=== PATIENT | female | born 1950 | race Caucasian/White ===

== ENCOUNTER → 2017-08-23 | Outpatient (CLI) | payer MEDICARE, OTHER ==
[~2017-08-23] MED LIST: /ESCI20TA OR; LUNE2TAB OR; PREG50CA OR; PROP10TAB OR; WELL75TA OR
[2017-08-23 14:39] LABS: ANION GAP 9 MEQ/L (8-16); BLOOD UREA NITROGEN 8 MG/DL (7-18); CALCIUM LEVEL 8.7 MG/DL (8.8-10.2); CARBON DIOXIDE LEVEL 26 MEQ/L (21-32); CHLORIDE LEVEL 109 MEQ/L (98-107); CREATININE FOR GFR 0.59 MG/DL (0.55-1.02); GLOMERULAR FILTRATION RATE > 60.0 (>45); GLUCOSE, FASTING 79 MG/DL (80-110); POTASSIUM SERUM 3.9 MEQ/L (3.5-5.1); SODIUM LEVEL 144 MEQ/L (136-145)
== END ==
LOC: M WUC 09:31
PROVIDERS: ATTEND Nurse Practitioner Family
DX: E55.9 Vitamin D deficiency, unspecified (principal); E58 Dietary calcium deficiency

== ENCOUNTER → 2017-08-29 | Outpatient (CLI) | payer MEDICARE, OTHER | LOC: M WUC 10:41 | PROVIDERS: ATTEND Internal Medicine Endocrinology, Diabetes & Metabolism | DX: M81.0 Age-related osteoporosis without current pathological fracture (principal); E58 Dietary calcium deficiency ==

== ENCOUNTER → 2017-11-17 | Outpatient (CLI) | payer MEDICARE, OTHER | LOC: M WUC 18:35 | DX: S22.32XA Fracture of one rib, left side, initial encounter for closed fracture (principal); X58.XXXA Exposure to other specified factors, initial encounter; Y92.9 Unspecified place or not applicable | CPT/HCPCS: 71101 ==

== ENCOUNTER → 2018-03-08 | Outpatient (CLI) | payer MEDICARE, OTHER ==
[2018-03-08 16:57] LABS: ANION GAP 8 MEQ/L (8-16); BLOOD UREA NITROGEN 13 MG/DL (7-18); CALCIUM LEVEL 8.8 MG/DL (8.8-10.2); CARBON DIOXIDE LEVEL 27 MEQ/L (21-32); CHLORIDE LEVEL 110 MEQ/L (98-107); CREATININE FOR GFR 0.64 MG/DL (0.55-1.30); GLOMERULAR FILTRATION RATE > 60.0 (>45); GLUCOSE, FASTING 100 MG/DL (70-100); SODIUM LEVEL 145 MEQ/L (136-145)
[2018-03-08 17:01] LABS: TOTAL 25(OH) VITAMIN D 31.1 NG/ML (30.0-100.0)
== END ==
LOC: M WUC 12:05
DX: E55.9 Vitamin D deficiency, unspecified (principal); E58 Dietary calcium deficiency
CPT/HCPCS: 82306

== ENCOUNTER 2018-03-09 07:13 | Emergency (ER) | payer MEDICARE, OTHER ==
[2018-03-09] MEDS: NS 500 ML IV ×3 (07:45)
[2018-03-09 07:58] LABS: BASO % 0.4 % (0.0-1.0); EOS # 0.2 10^3/uL (0.0-0.50); EOS % 1.6 % (0.0-3.0); HEMOGLOBIN 14.2 g/dl (12.0-15.5); IMMATURE GRANULOCYTE % 0.2 % (0-3.0); LYMPH # 2.2 10^3/uL (1.5-4.5); LYMPH % 22.8 % (24.0-44.0); MEAN CORPUSCULAR HEMOGLOBIN 29.6 pg (27.0-33.0); MEAN CORPUSCULAR VOLUME 89.6 fl (80.0-96.0); MONO # 0.7 10^3/uL (0.0-0.8); MONO % 7.3 % (0.0-5.0); NEUTROPHILS # 6.6 10^3/uL (1.8-7.7); NEUTROPHILS % 67.7 % (36.0-66.0); PLATELET COUNT, AUTOMATED 242 10^3/uL (150-450); RED CELL DISTRIBUTION WIDTH 14.1 % (11.5-14.5); WHITE BLOOD COUNT 9.8 10^3/uL (4.0-10.0)
[2018-03-09 08:09] LABS: INR 0.96; PROTHROMBIN TIME 12.9 SECONDS (12.4-14.5)
[2018-03-09 08:10] LABS: PARTIAL THROMBOPLASTIN TIME 30.4 SECONDS (26.8-37.9)
[2018-03-09 08:12] LABS: LACTIC ACID SEPSIS PROTOCOL 1.1 MMOL/L (0.4-2.0)
[2018-03-09 08:15] LABS: ALBUMIN 3.7 GM/DL (3.2-5.2); ALBUMIN/GLOBULIN RATIO 1.16 (1.00-1.93); ALKALINE PHOSPHATASE 107 U/L (45-117); ALT/SGPT 61 U/L (12-78); ANION GAP 6 MEQ/L (8-16); AST/SGOT 43 U/L (7-37); BILIRUBIN,DIRECT 0.2 MG/DL (0.0-0.2); BILIRUBIN,TOTAL 0.6 MG/DL (0.2-1.0); BLOOD UREA NITROGEN 11 MG/DL (7-18); CALCIUM LEVEL 8.6 MG/DL (8.8-10.2); CARBON DIOXIDE LEVEL 29 MEQ/L (21-32); CHLORIDE LEVEL 109 MEQ/L (98-107); CPK CREATINE PHOSPHOKINASE 60 U/L (26-192); CREATININE FOR GFR 0.62 MG/DL (0.55-1.30); FREE T4 0.91 NG/DL (0.76-1.46); GLOMERULAR FILTRATION RATE > 60.0 (>45); GLUCOSE, FASTING 88 MG/DL (70-100); LIPASE 139 U/L (73-393); POTASSIUM SERUM 3.9 MEQ/L (3.5-5.1); SODIUM LEVEL 144 MEQ/L (136-145); TOTAL PROTEIN 6.9 GM/DL (6.4-8.2); TROPONIN I < 0.02 NG/ML (< 0.10)
[2018-03-09 08:20] LABS: CK-MB VALUE MASS 1.1 NG/ML (<3.6); MB/CK RELATIVE INDEX 1.83 (< OR =4)
[2018-03-09] MEDS ORDERED: ISOVUE-370 76% 100ML VIAL (Q9967) As Ordered ×3 (09:10)
[2018-03-09 09:52] LABS: KETONE, URINE AUTO RFX NEGATIVE (NEGATIVE); LEUKOCYTE ESTERASE UR AUTO RFX NEGATIVE (NEGATIVE); NITRITE, URINE AUTO RFX NEGATIVE (NEGATIVE); RBC, URINE AUTO RFX 2 /HPF (0-3); SPECIFIC GRAVITY UR AUTO RFX 1.012 (1.002-1.035); SQUAM EPITHELIAL CELL UR AURFX 0 /HPF (0-6); WBC, URINE AUTO RFX 0 /HPF (0-3)
== END 2018-03-09 10:22 | disposition home or self-care (01) ==
LOC: M ED 07:13
DX: R00.2 Palpitations (principal); R51 Headache; R63.4 Abnormal weight loss; R10.9 Unspecified abdominal pain; K43.9 Ventral hernia without obstruction or gangrene; I10 Essential (primary) hypertension; Z98.84 Bariatric surgery status; Z79.899 Other long term (current) drug therapy; Z88.5 Allergy status to narcotic agent; Z88.8 Allergy status to other drugs, medicaments and biological substances; Z91.041 Radiographic dye allergy status
CPT/HCPCS: 71046

== ENCOUNTER → 2018-04-18 | Outpatient (CLI) | payer MEDICARE, OTHER ==
[2018-04-18 17:48] LABS: HEMATOCRIT 41.9 % (36.0-47.0); HEMOGLOBIN 13.9 g/dl (12.0-15.5); MEAN CORPUSCULAR HEMOGLOBIN 30.3 pg (27.0-33.0); MEAN CORPUSCULAR HGB CONC 33.2 g/dl (32.0-36.5); MEAN CORPUSCULAR VOLUME 91.3 fl (80.0-96.0); PLATELET COUNT, AUTOMATED 344 10^3/uL (150-450); RED BLOOD COUNT 4.59 10^6/uL (4.00-5.40); RED CELL DISTRIBUTION WIDTH 15.2 % (11.5-14.5); WHITE BLOOD COUNT 13.4 10^3/uL (4.0-10.0)
== END ==
LOC: M WUC 15:23
DX: D50.0 Iron deficiency anemia secondary to blood loss (chronic) (principal)
CPT/HCPCS: 85027

== ENCOUNTER 2018-05-31 06:28 | Day surgery (SDC) | payer MEDICARE, OTHER ==
[2018-05-31] MEDS ORDERED: PROPOFOL 200 MG/20 ML VIAL As Ordered (07:00)
[2018-05-31] MEDS ORDERED: LIDOCAINE 2% INJ 100 MG/5 ML SDV (FOR ANES.) As Ordered (07:01)
[2018-05-31] MEDS ORDERED: NS 1,000 ML IV (07:15)
== END 2018-05-31 08:46 | disposition home or self-care (01) ==
LOC: M OPP 06:28
DX: K92.1 Melena (principal); K52.9 Noninfective gastroenteritis and colitis, unspecified; K64.8 Other hemorrhoids; Q43.8 Other specified congenital malformations of intestine; I25.2 Old myocardial infarction; E78.5 Hyperlipidemia, unspecified; K58.9 Irritable bowel syndrome, unspecified; M51.9 Unspecified thoracic, thoracolumbar and lumbosacral intervertebral disc disorder; M79.7 Fibromyalgia; M81.0 Age-related osteoporosis without current pathological fracture; F41.9 Anxiety disorder, unspecified; F32.9 Major depressive disorder, single episode, unspecified; G43.909 Migraine, unspecified, not intractable, without status migrainosus; R06.83 Snoring; G47.30 Sleep apnea, unspecified; Z98.1 Arthrodesis status; Z98.84 Bariatric surgery status; Z88.5 Allergy status to narcotic agent; Z91.041 Radiographic dye allergy status; Z91.048 Other nonmedicinal substance allergy status; Z79.899 Other long term (current) drug therapy; Z80.1 Family history of malignant neoplasm of trachea, bronchus and lung; Z80.8 Family history of malignant neoplasm of other organs or systems
CPT/HCPCS: 45380

== ENCOUNTER 2018-07-19 19:41 | Emergency (ER) | payer MEDICARE, OTHER ==
[2018-07-19] MEDS: ASPIRIN 81 MG CHEW TABLET PO (19:45)
[2018-07-19 20:24] LABS: VENOUS BASE EXCESS 1.9 (-2.0-2.0); VENOUS O2 SATURATION 74.8 % (60.0-80.0); VENOUS PARTIAL PRESSURE CO2 43.9 mmHg (38.0-50.0); VENOUS PARTIAL PRESSURE O2 39.1 mmHg (30.0-50.0); VENOUS PH 7.407 UNITS (7.330-7.430); VENOUS STANDARD HCO3 25.6 MEQ/L; VENOUS TOTAL CO2 28.4 MEQ/L (24.0-28.0)
[2018-07-19 20:27] LABS: BASO # 0.1 10^3/uL (0.0-0.2); BASO % 0.5 % (0.0-1.0); EOS # 0.1 10^3/uL (0.0-0.50); EOS % 1.3 % (0.0-3.0); HEMATOCRIT 44.2 % (36.0-47.0); HEMOGLOBIN 14.3 g/dl (12.0-15.5); IMMATURE GRANULOCYTE % 0.3 % (0-3.0); LYMPH # 2.7 10^3/uL (1.5-4.5); LYMPH % 25.8 % (24.0-44.0); MEAN CORPUSCULAR HEMOGLOBIN 29.3 pg (27.0-33.0); MEAN CORPUSCULAR HGB CONC 32.4 g/dl (32.0-36.5); MEAN CORPUSCULAR VOLUME 90.6 fl (80.0-96.0); MONO # 0.7 10^3/uL (0.0-0.8); MONO % 6.5 % (0.0-5.0); NEUTROPHILS # 6.9 10^3/uL (1.8-7.7); NEUTROPHILS % 65.6 % (36.0-66.0); PLATELET COUNT, AUTOMATED 274 10^3/uL (150-450); RED BLOOD COUNT 4.88 10^6/uL (4.00-5.40); RED CELL DISTRIBUTION WIDTH 13.6 % (11.5-14.5); WHITE BLOOD COUNT 10.5 10^3/uL (4.0-10.0)
[2018-07-19 20:57] LABS: ALBUMIN 3.8 GM/DL (3.2-5.2); ALBUMIN/GLOBULIN RATIO 1.23 (1.00-1.93); ALKALINE PHOSPHATASE 92 U/L (45-117); ALT/SGPT 70 U/L (12-78); ANION GAP 5 MEQ/L (8-16); AST/SGOT 51 U/L (7-37); BILIRUBIN,DIRECT 0.2 MG/DL (0.0-0.2); BILIRUBIN,TOTAL 0.4 MG/DL (0.2-1.0); BLOOD UREA NITROGEN 14 MG/DL (7-18); CALCIUM LEVEL 8.5 MG/DL (8.8-10.2); CARBON DIOXIDE LEVEL 30 MEQ/L (21-32); CHLORIDE LEVEL 108 MEQ/L (98-107); CK-MB VALUE MASS < 1.0 NG/ML (<3.6); CPK CREATINE PHOSPHOKINASE 43 U/L (26-192); GLOMERULAR FILTRATION RATE > 60.0 (>45); GLUCOSE, FASTING 96 MG/DL (70-100); MB/CK RELATIVE INDEX 2.33 (< OR =4); NT-PRO BNP 79 PG/ML (<125); POTASSIUM SERUM 4.2 MEQ/L (3.5-5.1); SODIUM LEVEL 143 MEQ/L (136-145); TOTAL PROTEIN 6.9 GM/DL (6.4-8.2); TROPONIN I < 0.02 NG/ML (< 0.10)
== END 2018-07-19 21:22 | disposition home or self-care (01) ==
LOC: M ED 19:41
DX: R07.9 Chest pain, unspecified (principal); M54.9 Dorsalgia, unspecified; F32.9 Major depressive disorder, single episode, unspecified; Z98.84 Bariatric surgery status; Z82.49 Family history of ischemic heart disease and other diseases of the circulatory system; Z91.041 Radiographic dye allergy status; Z88.8 Allergy status to other drugs, medicaments and biological substances; Z88.5 Allergy status to narcotic agent; Z91.048 Other nonmedicinal substance allergy status; Z79.899 Other long term (current) drug therapy
CPT/HCPCS: 71046

== ENCOUNTER 2018-09-05 09:37 | Day surgery (SDC) | payer MEDICARE, OTHER ==
[~2018-09-05 09:37] MED LIST changes: -/ESCI20TA OR; +ACETAMINOPHEN 325 MG TAB PO; -LUNE2TAB OR; -PREG50CA OR; -PROP10TAB OR; -WELL75TA OR
[2018-09-05] MEDS: OFLOXACIN 0.3 % (OCUFLOX) OPTH SOL 5ML OD (10:59)
[2018-09-05] MEDS: LIDOCAINE 3.5 % 1ML OPHTH TOPICAL GEL OU (10:59)
[2018-09-05] MEDS: PHENYLEPHRINE 2.5% OPHTH SOL 2ML OD (10:59)
[2018-09-05] MEDS: CYCLOPENTOLATE 2% OPHTH SOLN 2ML BTL OD (11:00)
[2018-09-05] MEDS: TROPICAMIDE 1% OPHTH SOLN 2ML OD (11:00)
[2018-09-05] MEDS ORDERED: POVIDONE-IODINE 5% OPHTH PREP SOL 30ML As Ordered (11:20)
[2018-09-05] MEDS: PHENYLEPHRINE HCL 10 % OPHTH. SOL 5ML OD (11:28)
[2018-09-05] MEDS ORDERED: MIDAZOLAM INJ 2 MG/2 ML VIAL (J2250) As Ordered (13:22)
[2018-09-05] MEDS ORDERED: fentaNYL 100 MCG/2 ML INJECTION (J3010) As Ordered (13:22)
[2018-09-05] MEDS: BSS with VANC/TOB/EPI for EYE CASES IR (13:25)
[2018-09-05] MEDS: MOXIFLOXACIN IN BSS 0.25MG/0.25ML INTRACAMERAL INJ (OR EYE ONLY)(J2280) As Ordered (13:26)
[2018-09-05] MEDS: TRIAMCINOLONE PRES FR 40 MG/ML 1ML(TRIESENCE)(OR EYE ONLY)(J3300 PER 1MG) As Ordered (13:26)
[2018-09-05] MEDS: LIDOCAINE 2% W/EPIN INJ 20ML **PRES FREE As Ordered (13:26)
[2018-09-05] MEDS: LIDOCAINE 1% SDV 5 ML VIAL As Ordered (13:26)
[2018-09-05] MEDS: HEALON DUET PRO(HEALON 10MG/ML 0.55ML & HEALON ENDOCOAT 30MG/ML 0.85ML) As Ordered (13:26)
[2018-09-05] MEDS ORDERED: TRIMETHOBENZAMIDE 300 MG CAP PO (13:45)
[2018-09-05] MEDS: AcetaZOLAMIDE 500 MG ER CAP PO (13:55)
== END 2018-09-05 14:25 | disposition home or self-care (01) ==
LOC: M SDC 09:37
DX: H25.9 Unspecified age-related cataract (principal); Z98.84 Bariatric surgery status; F41.9 Anxiety disorder, unspecified; F32.9 Major depressive disorder, single episode, unspecified; Z79.899 Other long term (current) drug therapy; I25.2 Old myocardial infarction; K58.8 Other irritable bowel syndrome
CPT/HCPCS: 66984

== ENCOUNTER 2018-09-13 07:39 | Day surgery (SDC) | payer MEDICARE, OTHER ==
[2018-09-13] MEDS: OFLOXACIN 0.3 % (OCUFLOX) OPTH SOL 5ML OS (07:00)
[2018-09-13] MEDS: TROPICAMIDE 1% OPHTH SOLN 2ML OS (07:00)
[2018-09-13] MEDS: LIDOCAINE 3.5 % 1ML OPHTH TOPICAL GEL OU (07:00)
[2018-09-13] MEDS: PHENYLEPHRINE 2.5% OPHTH SOL 2ML OS (07:00)
[~2018-09-13 07:39] MED LIST changes: -ACETAMINOPHEN 325 MG TAB PO; +CYCLOPENTOLATE 2% OPHTH SOLN 2ML BTL OS; +MIDAZOLAM INJ 2 MG/2 ML VIAL (J2250) As Ordered; +fentaNYL 100 MCG/2 ML INJECTION (J3010) As Ordered
[2018-09-13] MEDS: PHENYLEPHRINE HCL 10 % OPHTH. SOL 5ML OS (08:28)
[2018-09-13] MEDS: TRIAMCINOLONE PRES FR 40 MG/ML 1ML(TRIESENCE)(OR EYE ONLY)(J3300 PER 1MG) As Ordered (09:21)
[2018-09-13] MEDS: MOXIFLOXACIN IN BSS 0.25MG/0.25ML INTRACAMERAL INJ (OR EYE ONLY)(J2280) As Ordered (09:21)
[2018-09-13] MEDS: LIDOCAINE 1% SDV 5 ML VIAL As Ordered (09:21)
[2018-09-13] MEDS: BSS with VANC/TOB/EPI for EYE CASES IR (09:21)
[2018-09-13] MEDS: HEALON DUET PRO(HEALON 10MG/ML 0.55ML & HEALON ENDOCOAT 30MG/ML 0.85ML) As Ordered (09:21)
[2018-09-13] MEDS: POVIDONE-IODINE 5% OPHTH PREP SOL 30ML As Ordered (09:21)
== END 2018-09-13 10:25 | disposition home or self-care (01) ==
LOC: M SDC 07:39
DX: H25.9 Unspecified age-related cataract (principal); I25.2 Old myocardial infarction; K58.8 Other irritable bowel syndrome; E78.5 Hyperlipidemia, unspecified; M79.7 Fibromyalgia; F32.9 Major depressive disorder, single episode, unspecified; F41.9 Anxiety disorder, unspecified; Z88.8 Allergy status to other drugs, medicaments and biological substances
CPT/HCPCS: 66984

== ENCOUNTER → 2018-10-03 | Outpatient (CLI) | payer MEDICARE, OTHER ==
[~2018-10-03] MED LIST changes: +/ESCI20TA OR; +ATOR1TAB21 PO; +AUGM875T28 PO; +CALC600T60 PO; +CEPH500C PO; -CYCLOPENTOLATE 2% OPHTH SOLN 2ML BTL OS; +DRIS50003 PO; +HYDR-3363; +LUNE2TAB OR; +MELO15TA28 PO; -MIDAZOLAM INJ 2 MG/2 ML VIAL (J2250) As Ordered; +MULT1TAB10 PO; +PERC5TAB12 PO; +PRED10TA2 PO; +PREG50CA OR; +PROL60SO SC; +PROM50TA4 PO; +PROP10TAB OR; +ROPI2TAB PO; +VENL75TA2 PO; +VIAC8.5C PO; +WELL75TA OR; -fentaNYL 100 MCG/2 ML INJECTION (J3010) As Ordered
[2018-10-03 13:23] LABS: HEMATOCRIT 43.6 % (36.0-47.0); HEMOGLOBIN 13.9 g/dl (12.0-15.5); MEAN CORPUSCULAR HEMOGLOBIN 29.5 pg (27.0-33.0); MEAN CORPUSCULAR HGB CONC 31.9 g/dl (32.0-36.5); MEAN CORPUSCULAR VOLUME 92.6 fl (80.0-96.0); PLATELET COUNT, AUTOMATED 225 10^3/uL (150-450); RED BLOOD COUNT 4.71 10^6/uL (4.00-5.40); WHITE BLOOD COUNT 9.7 10^3/uL (4.0-10.0)
[2018-10-03 13:34] LABS: BLOOD UREA NITROGEN 13 MG/DL (7-18); CALCIUM LEVEL 8.1 MG/DL (8.8-10.2); CARBON DIOXIDE LEVEL 27 MEQ/L (21-32); CHLORIDE LEVEL 109 MEQ/L (98-107); CHOLESTEROL LEVEL 154 MG/DL (<200); CHOLESTEROL RISK RATIO 2.406 (<5); CREATININE FOR GFR 0.62 MG/DL (0.55-1.30); GLOMERULAR FILTRATION RATE > 60.0 (>45); GLUCOSE, FASTING 93 MG/DL (70-100); HDL CHOLESTEROL 64 MG/DL (>40); LDL CHOLESTEROL 78 MG/DL (<100); NON-HDL-C 90 MG/DL; POTASSIUM SERUM 4.2 MEQ/L (3.5-5.1); SODIUM LEVEL 143 MEQ/L (136-145); TRIGLYCERIDES LEVEL 62 MG/DL (<150)
== END ==
LOC: M WUC 09:28
PROVIDERS: ATTEND Internal Medicine Cardiovascular Disease
DX: E78.5 Hyperlipidemia, unspecified (principal); K92.2 Gastrointestinal hemorrhage, unspecified; M81.0 Age-related osteoporosis without current pathological fracture; E59 Dietary selenium deficiency

== ENCOUNTER → 2018-10-03 | Outpatient (CLI) | payer MEDICARE, OTHER ==
[2018-10-03 13:24] LABS: CALCIUM LEVEL 8.5 MG/DL (8.8-10.2)
[2018-10-03 13:43] LABS: TOTAL 25(OH) VITAMIN D 36.3 NG/ML (30.0-100.0)
== END ==
LOC: M WUC 09:34
PROVIDERS: ATTEND Internal Medicine Endocrinology, Diabetes & Metabolism
DX: M81.0 Age-related osteoporosis without current pathological fracture (principal); E55.9 Vitamin D deficiency, unspecified

== ENCOUNTER 2018-10-06 15:51 | Emergency (ER) | payer MEDICARE, OTHER ==
[~2018-10-06] VITALS: Ht 152.4 cm; Wt 81.8 kg
[~2018-10-06 15:51] MED LIST changes: -PERC5TAB12 PO; -PROM50TA4 PO
--- NOTE | 2018-10-06 16:47 | REP ---
Right rib series: Five views including PA chest. History: Injury in a fall. Comparison chest x-ray: July 19, 2018. Findings: PA chest radiograph shows no evidence of pneumothorax or hydrothorax. Right hemidiaphragm remains elevated as before. No infiltrate is seen. There is minimal linear plate-like atelectasis in the right base. Mediastinum is not widened. Heart size normal. Multiple views of the right ribcage demonstrate nondisplaced fractures of the right sixth, seventh, eighth, and possibly ninth lateral ribs. There are clips in right upper quadrant. Fusion hardware is seen in the lumbar spine. Impression: Nondisplaced fractures of the right sixth, seventh, eighth and possibly ninth ribs. Plate-like atelectasis right base. Electronically Signed by Eliot Bar MD 10/06/2018 05:12 P
[2018-10-06] MEDS ORDERED: KETOROLAC TROMETHAMINE 10 MG TAB PO ONE (17:30)
--- NOTE | 2018-10-06 18:10 | REP ---
HISTORY: Pain after trauma. COMPARISON: 12/17/2005 There is no significant change in the appearance of the thoracic spine. There is a mild thoracic kyphosis. Vertebral body height and alignment appears to be within normal limits. Although there is less than proper photographic plate exposure with poor radiographic beam penetration. IMPRESSION: No gross abnormality. Electronically Signed by Shin Plascencia DO 10/06/2018 07:44 P
[2018-10-06] MEDS ORDERED: PERC5TAB12 PO (19:30)
[2018-10-06] MEDS ORDERED: PROM50TA4 PO (19:30)
[2018-10-06 19:40] VITALS: BP 137/72
== END 2018-10-06 19:46 | disposition home or self-care (01) ==
LOC: M ED 15:51
DX: S22.41XA Multiple fractures of ribs, right side, initial encounter for closed fracture (principal); J98.11 Atelectasis; W01.0XXA Fall on same level from slipping, tripping and stumbling without subsequent striking against object, initial encounter; Y92.480 Sidewalk as the place of occurrence of the external cause; Y93.9 Activity, unspecified; Y99.9 Unspecified external cause status; I25.2 Old myocardial infarction; I10 Essential (primary) hypertension; R51 Headache; F41.9 Anxiety disorder, unspecified; F32.9 Major depressive disorder, single episode, unspecified; Z98.84 Bariatric surgery status; Z79.899 Other long term (current) drug therapy; Z88.5 Allergy status to narcotic agent; Z91.89 Other specified personal risk factors, not elsewhere classified; Z91.041 Radiographic dye allergy status

== ENCOUNTER 2019-04-05 11:46 | Emergency (ER) | payer MEDICARE, OTHER ==
[~2019-04-05] VITALS: Ht 152.4 cm; Wt 87.3 kg
[~2019-04-05 11:46] MED LIST changes: -/ESCI20TA OR; +LEXA1TAB2 OR; +PERC5TAB12 PO; +PROM50TA4 PO; -VIAC8.5C PO; +VIACTIV 500-5001 CHW PO
[2019-04-05] MEDS ORDERED: BUPR150T5 (12:07)
[2019-04-05 14:26] LABS: BASO % 0.4 % (0.0-1.0); EOS # 0.2 10^3/uL (0.0-0.50); EOS % 1.6 % (0.0-3.0); HEMATOCRIT 43.2 % (36.0-47.0); LYMPH # 2.5 10^3/uL (1.5-4.5); LYMPH % 23.3 % (24.0-44.0); MEAN CORPUSCULAR HEMOGLOBIN 31.3 pg (27.0-33.0); MEAN CORPUSCULAR HGB CONC 32.4 g/dl (32.0-36.5); MEAN CORPUSCULAR VOLUME 96.4 fl (80.0-96.0); MONO # 0.9 10^3/uL (0.0-0.8); MONO % 8.8 % (0.0-5.0); NEUTROPHILS # 6.9 10^3/uL (1.8-7.7); NEUTROPHILS % 65.6 % (36.0-66.0); PLATELET COUNT, AUTOMATED 234 10^3/uL (150-450); RED BLOOD COUNT 4.48 10^6/uL (4.00-5.40); WHITE BLOOD COUNT 10.5 10^3/uL (4.0-10.0)
[2019-04-05 15:56] LABS: ALBUMIN 3.6 GM/DL (3.2-5.2); ALT/SGPT 38 U/L (12-78); BILIRUBIN,TOTAL 0.5 MG/DL (0.2-1.0); BLOOD UREA NITROGEN 13 MG/DL (7-18); CALCIUM LEVEL 8.8 MG/DL (8.8-10.2); CARBON DIOXIDE LEVEL 28 MEQ/L (21-32); CHLORIDE LEVEL 109 MEQ/L (98-107); CREATININE FOR GFR 0.65 MG/DL (0.55-1.30); GLOMERULAR FILTRATION RATE > 60.0 (>45); GLUCOSE, FASTING 88 MG/DL (70-100); POTASSIUM SERUM 4.1 MEQ/L (3.5-5.1); SODIUM LEVEL 145 MEQ/L (136-145); TOTAL PROTEIN 6.8 GM/DL (6.4-8.2)
[2019-04-05 18:28] VITALS: BP 151/71
--- NOTE | 2019-04-06 10:30 | ECGEPIP ---
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
[2019-04-08 00:08] LABS: Lyme Disease IgG/IgM Antibodie <0.91 ISR (0.00-0.90); Lyme Disease IgM Ab Quantitati <0.80 index (0.00-0.79)
== END 2019-04-05 18:32 | disposition home or self-care (01) ==
LOC: M ED 11:46
DX: R53.1 Weakness (principal); G47.00 Insomnia, unspecified; R42 Dizziness and giddiness; R23.3 Spontaneous ecchymoses; H57.13 Ocular pain, bilateral; D50.9 Iron deficiency anemia, unspecified; E78.5 Hyperlipidemia, unspecified; F41.9 Anxiety disorder, unspecified; F32.9 Major depressive disorder, single episode, unspecified; G25.81 Restless legs syndrome; W57.XXXA Bitten or stung by nonvenomous insect and other nonvenomous arthropods, initial encounter; Y92.89 Other specified places as the place of occurrence of the external cause; Z98.84 Bariatric surgery status; Z79.899 Other long term (current) drug therapy; Z91.048 Other nonmedicinal substance allergy status; Z91.041 Radiographic dye allergy status; Z88.5 Allergy status to narcotic agent

== ENCOUNTER → 2019-04-11 | Outpatient (CLI) | payer MEDICARE, OTHER ==
[~2019-04-11] MED LIST changes: +BUPR150T5
[2019-04-11 19:23] LABS: CALCIUM LEVEL 8.7 MG/DL (8.8-10.2)
[2019-04-11 19:40] LABS: TOTAL 25(OH) VITAMIN D 26.1 NG/ML (30.0-100.0)
== END ==
LOC: M WUC 15:24
PROVIDERS: ATTEND Nurse Practitioner Family
DX: E58 Dietary calcium deficiency (principal); D51.9 Vitamin B12 deficiency anemia, unspecified; E55.9 Vitamin D deficiency, unspecified

== ENCOUNTER → 2019-04-18 | Outpatient (CLI) | payer MEDICARE, OTHER | LOC: M WUC 09:31 | PROVIDERS: ATTEND Internal Medicine Endocrinology, Diabetes & Metabolism | DX: M81.0 Age-related osteoporosis without current pathological fracture (principal) ==

== ENCOUNTER → 2019-05-08 | Outpatient (CLI) | payer MEDICARE, OTHER ==
[2019-05-10 00:07] LABS: Lyme Disease IgG/IgM Antibodie <0.91 ISR (0.00-0.90); Lyme Disease IgM Ab Quantitati <0.80 index (0.00-0.79)
== END ==
LOC: M WUC 09:10
PROVIDERS: ATTEND Nurse Practitioner
DX: Z11.2 Encounter for screening for other bacterial diseases (principal); S30.860A Insect bite (nonvenomous) of lower back and pelvis, initial encounter

== ENCOUNTER → 2019-10-17 | Outpatient (CLI) | payer MEDICARE, OTHER ==
[~2019-10-17] MED LIST changes: +DULO1CAP6 PO; +MULTCAP PO; +VIAC1CHW PO; +VITA50005 PO
== END ==
LOC: M WUC 13:24
PROVIDERS: ATTEND Nurse Practitioner Family
DX: M81.0 Age-related osteoporosis without current pathological fracture (principal)

== ENCOUNTER 2019-11-06 10:26 | Day surgery (SDC) | payer MEDICARE, OTHER ==
[~2019-11-06] VITALS: Ht 152.4 cm; Wt 87.1 kg
[~2019-11-06 10:26] MED LIST changes: +LIDOCAINE 2% INJ 100 MG/5 ML SDV (FOR ANES.) As Ordered ONE; +NS 1,000 ML IV ONE; +propofoL 500 MG/50 ML VIAL As Ordered ONE
[2019-11-06 12:55] VITALS: BP 143/72
--- NOTE | 2019-11-06 12:55 | ROOR ---
Patient Name: Razia Barker Procedure Date: 11/06/2019 11:39 AM Date of : 1950 Age: 69 Room: [facility] Gender: Female Note Status: Finalized Procedure: Upper GI endoscopy Indications: Epigastric abdominal pain, Dyspepsia Providers: Jamin Dominguez MD Referring MD: JOHAN SANDERS MD Requesting Provider: Medicines: Monitored Anesthesia Care Complications: No immediate complications. Procedure: Pre-Anesthesia Assessment: - Prior to the procedure, a History and Physical was performed, and patient medications and allergies were reviewed. The patient is competent. The risks and benefits of the procedure and the sedation options and risks were discussed with the patient. All questions were answered and informed consent was obtained. Patient identification and proposed procedure were verified by the physician, the nurse and the anesthesiologist in the procedure room. Mental Status Examination: alert and oriented. Airway Examination: normal oropharyngeal airway and neck mobility. Respiratory Examination: clear to auscultation. CV Examination: normal. Prophylactic Antibiotics: The patient does not require prophylactic antibiotics. Prior Anticoagulants: The patient has taken no previous anticoagulant or antiplatelet agents. ASA Grade Assessment: II - A patient with mild systemic disease. After reviewing the risks and benefits, the patient was deemed in satisfactory condition to undergo the procedure. The anesthesia plan was to use monitored anesthesia care (MAC). Immediately prior to administration of medications, the patient was re-assessed for adequacy to receive sedatives. The heart rate, respiratory rate, oxygen saturations, blood pressure, adequacy of pulmonary ventilation, and response to care were monitored throughout the procedure. The physical status of the patient was re-assessed after the procedure. The Endoscope was introduced through the mouth, and advanced to the afferent and efferent jejunal loops. The upper GI endoscopy was accomplished without difficulty. The patient tolerated the procedure well. Findings: The examined esophagus was normal. The Z-line was regular and was found 40 cm from the incisors. 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 The gastrojejunal anastomosis was characterized by congestion and erythema. This was traversed. The kyjka-mt-dhhuknb limb was characterized by healthy appearing mucosa. The jejunojejunal anastomosis was characterized by congestion and erosion. The xyorridn-gb-hwudjyx limb was examined 40 cm from the anastomosis and was characterized by healthy appearing mucosa. Two biopsies were obtained with cold forceps for evaluation of celiac disease in the jejunum and at anastomosis, as well as two biopsies in the gastric body. Verification of patient identification for the specimen was done by the physician and nurse using the patient's name, date and medical record number. Estimated blood loss was minimal. Normal mucosa was found in the jejunum. Impression: - Normal esophagus. - Z-line regular, 40 cm from the incisors. - Hilda-en-Y gastrojejunostomy with gastrojejunal anastomosis characterized by congestion and erythema. - Normal mucosa was found in the jejunum. - Biopsies performed in the jejunum and at anastomosis and in the gastric body. Recommendation: - Patient has a contact number available for emergencies. The signs and symptoms of potential delayed complications were discussed with the patient. Return to normal activities tomorrow. Written discharge instructions were provided to the patient. - High fiber diet. - Continue present medications. - Await pathology results. - Telephone GI clinic for pathology results in 2 weeks. - Return to primary care physician. Jamin Dominguez MD Jamin Dominguez MD 11/06/2019 12:54:26 PM Electronically signed by Jamin Dominguez MD Number of Addenda: 0 Note Initiated On: 11/06/2019 11:39 AM Estimated Blood Loss: Estimated blood loss was minimal.
--- NOTE | 2019-11-06 13:54 | ROOR ---
Patient Name: Razia Barker Procedure Date: 11/06/2019 11:39 AM Date of : 1950 Age: 69 Room: [facility] Gender: Female Note Status: Finalized Procedure: Colonoscopy Indications: Change in bowel habits, Change in stool caliber Providers: Jamin Dominguez MD Referring MD: JOHAN SANDERS MD Requesting Provider: Medicines: Monitored Anesthesia Care Complications: No immediate complications. Procedure: Pre-Anesthesia Assessment: - Prior to the procedure, a History and Physical was performed, and patient medications and allergies were reviewed. The patient is competent. The risks and benefits of the procedure and the sedation options and risks were discussed with the patient. All questions were answered and informed consent was obtained. Patient identification and proposed procedure were verified by the physician, the nurse and the anesthesiologist in the procedure room. Mental Status Examination: alert and oriented. Airway Examination: normal oropharyngeal airway and neck mobility. Respiratory Examination: clear to auscultation. CV Examination: normal. Prophylactic Antibiotics: The patient does not require prophylactic antibiotics. Prior Anticoagulants: The patient has taken no previous anticoagulant or antiplatelet agents. ASA Grade Assessment: III - A patient with severe systemic disease. After reviewing the risks and benefits, the patient was deemed in satisfactory condition to undergo the procedure. The anesthesia plan was to use monitored anesthesia care (MAC). Immediately prior to administration of medications, the patient was re-assessed for adequacy to receive sedatives. The heart rate, respiratory rate, oxygen saturations, blood pressure, adequacy of pulmonary ventilation, and response to care were monitored throughout the procedure. The physical status of the patient was re-assessed after the procedure. The Colonoscope was introduced through the anus and advanced to the cecum, identified by appendiceal orifice and ileocecal valve. The colonoscopy was performed without difficulty. The patient tolerated the procedure well. The quality of the bowel preparation was good. The ileocecal valve, appendiceal orifice, and rectum were photographed. Scope insertion time was 5 minutes. Scope withdrawal time was 9 minutes. The total duration of the procedure was 14 minutes. Findings: The perianal and digital rectal examinations were normal. A 8 mm polyp was found in the cecum. The polyp was sessile. The polyp was removed with a cold snare. Resection and retrieval were complete. Verification of patient identification for the specimen was done by the physician and nurse using the patient's name, date and medical record number. Estimated blood loss was minimal. Multiple small and large-mouthed diverticula were found from sigmoid to descending colon. There was no evidence of diverticular bleeding. The sigmoid colon and descending colon were significantly tortuous. Non-bleeding external and internal hemorrhoids were found during retroflexion. The hemorrhoids were small. Impression: - One 8 mm polyp in the cecum, removed with a cold snare. Resected and retrieved. - Moderate diverticulosis from sigmoid to descending colon. There was no evidence of diverticular bleeding. - Tortuous colon. - Non-bleeding external and internal hemorrhoids. Recommendation: - Patient has a contact number available for emergencies. The signs and symptoms of potential delayed complications were discussed with the patient. Return to normal activities tomorrow. Written discharge instructions were provided to the patient. - High fiber diet. - Continue present medications. - Use fiber, for example Citrucel, Fibercon, Konsyl or Metamucil. - Await pathology results. - Repeat colonoscopy is not recommended due to current age (66 years or older) depending on clinical and functional status. - Telephone GI clinic for pathology results in 2 weeks. - Return to primary care physician. Jamin Dominguez MD Jamin Dominguez MD 11/06/2019 1:53:33 PM Electronically signed by Jamin Dominguez MD Number of Addenda: 0 Note Initiated On: 11/06/2019 11:39 AM Estimated Blood Loss: Estimated blood loss was minimal.
== END 2019-11-06 13:15 | disposition home or self-care (01) ==
LOC: M OPP 10:26
PROVIDERS: ATTEND Internal Medicine Gastroenterology
DX: D12.0 Benign neoplasm of cecum (principal); K64.8 Other hemorrhoids; R19.5 Other fecal abnormalities; Q43.8 Other specified congenital malformations of intestine; R19.4 Change in bowel habit; Z98.0 Intestinal bypass and anastomosis status; R10.13 Epigastric pain; G47.30 Sleep apnea, unspecified; Z91.041 Radiographic dye allergy status; Z88.5 Allergy status to narcotic agent; Z91.048 Other nonmedicinal substance allergy status

== ENCOUNTER 2019-12-09 17:26 | Emergency (ER) | payer MEDICARE, OTHER ==
[~2019-12-09] VITALS: Ht 165.1 cm; Wt 86.3 kg
[~2019-12-09 17:26] MED LIST changes: -LIDOCAINE 2% INJ 100 MG/5 ML SDV (FOR ANES.) As Ordered ONE; -NS 1,000 ML IV ONE; -ROPI2TAB PO; +ROPI2TAB3 PO; -propofoL 500 MG/50 ML VIAL As Ordered ONE
[2019-12-09 17:54] LABS: BASO % 0.5 % (0.0-1.0); EOS # 0.1 10^3/uL (0.0-0.5); EOS % 1.7 % (0.0-3.0); HEMOGLOBIN 13.7 g/dl (12.0-15.5); LYMPH # 2.5 10^3/uL (1.5-5.0); LYMPH % 29.7 % (24.0-44.0); MEAN CORPUSCULAR HEMOGLOBIN 30.2 pg (27.0-33.0); MEAN CORPUSCULAR HGB CONC 32.6 g/dl (32.0-36.5); MEAN CORPUSCULAR VOLUME 92.7 fl (80.0-96.0); MONO # 0.7 10^3/uL (0.0-0.8); MONO % 8.6 % (0.0-5.0); NEUTROPHILS % 59.1 % (36.0-66.0); PLATELET COUNT, AUTOMATED 232 10^3/uL (150-450); RED BLOOD COUNT 4.53 10^6/uL (4.00-5.40); WHITE BLOOD COUNT 8.4 10^3/uL (4.0-10.0)
[2019-12-09 18:27] LABS: BLOOD UREA NITROGEN 8 MG/DL (7-18); CALCIUM LEVEL 8.3 MG/DL (8.8-10.2); CARBON DIOXIDE LEVEL 28 MEQ/L (21-32); CHLORIDE LEVEL 107 MEQ/L (98-107); CK-MB VALUE MASS < 1.0 NG/ML (<3.6); CPK CREATINE PHOSPHOKINASE 59 U/L (26-192); GLOMERULAR FILTRATION RATE > 60.0 (>39); GLUCOSE, FASTING 92 MG/DL (70-100); MB/CK RELATIVE INDEX 1.69 (< OR =4); SODIUM LEVEL 141 MEQ/L (136-145); TROPONIN I < 0.02 NG/ML (< 0.10)
[2019-12-09] MEDS ORDERED: GI COCKTAIL 50ML BTL(HYOSCYAMINE/MAALOX/LIDOCAINE VISCOUS)(1:3:1) PO ONE ×2 (18:45→21:15)
--- NOTE | 2019-12-09 18:50 | ECGEPIP ---
[facility] - ED Test Date: 2019-12-09 Pat Name: HIPOLITO GORDON Department: Room: - Gender: Female Manager Cardiac Cath: KENDRA : 1950 Requested By: Jacky Young Order Number: [id number] Reading MD: Dipika Olivo Measurements Intervals [place] Rate: 70 P: 52 SC: 164 QRS: 21 QRSD: 85 T: 43 QT: 417 QTc: 452 Interpretive Statements SINUS RHYTHM POSSIBLE OLD INFERIOR INFARCT NSTTW abnormalities SIMILAR 04/05/19 Electronically Signed on 12-09-2019 18:50:03 EST by Dipika Olivo
[2019-12-09 22:12] LABS: CK-MB VALUE MASS < 1.0 NG/ML (<3.6); CPK CREATINE PHOSPHOKINASE 52 U/L (26-192); MB/CK RELATIVE INDEX 1.92 (< OR =4); TROPONIN I < 0.02 NG/ML (< 0.10)
[2019-12-09] MEDS ORDERED: SUCR1TA PO (22:38)
[2019-12-09] MEDS ORDERED: OMEP40CA97 PO (22:38)
[2019-12-09 23:31] VITALS: BP 140/65
--- NOTE | 2019-12-10 07:54 | ECGEPIP ---
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
--- NOTE | 2019-12-10 08:44 | REP ---
Portable chest x-ray: Single view. History: Chest pain. Comparison chest x-ray: October 06, 2018. Findings: There are clips in right upper quadrant of the abdomen. Monitoring electrodes are seen. Right hemidiaphragm remains elevated. Cardiomediastinal silhouette is unremarkable. Pulmonary vasculature is not increased. Impression: Elevated right hemidiaphragm. No acute disease. Electronically Signed by Eliot Bar MD 12/10/2019 08:36 A
== END 2019-12-09 23:20 | disposition home or self-care (01) ==
LOC: M ED 17:26
DX: R07.89 Other chest pain (principal); R06.02 Shortness of breath; I48.91 Unspecified atrial fibrillation; E78.5 Hyperlipidemia, unspecified; I25.2 Old myocardial infarction; D50.9 Iron deficiency anemia, unspecified; Z95.1 Presence of aortocoronary bypass graft

== ENCOUNTER → 2020-04-23 | Outpatient (CLI) | payer MEDICARE, OTHER ==
[~2020-04-23] MED LIST changes: +OMEP40CA97 PO; +SUCR1TA PO
[2020-04-23 17:27] LABS: CALCIUM LEVEL 8.9 MG/DL (8.8-10.2)
[2020-04-24 10:31] LABS: TOTAL 25(OH) VITAMIN D 47.7 NG/ML (30.0-100.0)
== END ==
LOC: M WUC 10:38
PROVIDERS: ATTEND Internal Medicine Endocrinology, Diabetes & Metabolism
DX: E58 Dietary calcium deficiency (principal); M81.0 Age-related osteoporosis without current pathological fracture

== ENCOUNTER → 2020-11-15 | Outpatient (CLI) | payer MEDICARE ==
[2020-11-15 10:56] LABS: CALCIUM LEVEL 9.3 MG/DL (8.8-10.2)
[2020-11-15 11:03] LABS: TOTAL 25(OH) VITAMIN D 47.2 NG/ML (30.0-100.0)
== END ==
LOC: M WUC 08:30
PROVIDERS: ATTEND Internal Medicine Endocrinology, Diabetes & Metabolism
DX: M81.0 Age-related osteoporosis without current pathological fracture (principal); E55.9 Vitamin D deficiency, unspecified

== ENCOUNTER → 2021-01-09 | Outpatient (CLI) | payer MEDICARE ==
--- NOTE | 2021-01-09 14:53 | REP ---
INDICATION: CONTUSION. COMPARISON: None. TECHNIQUE: AP and lateral views of the LS spine. FINDINGS: There is posterior fusion with pedicle screws at L3 and L4 level. There is anterior screw at L5 and interbody fusion material at L4-5 and L5-S1. There is a slight anterolisthesis of L4 over L5. On the sagittal image, no evidence of fracture or posttraumatic malalignment. No evidence of hardware loosening or hardware failure. Soft tissues appear unremarkable. IMPRESSION: Lumbar and sacral fusion with hardware. No evidence of hardware loosening or hardware failure. No evidence of fracture or posttraumatic malalignment. <Electronically signed by Joseph Morelos > 01/09/21 [id number]
--- NOTE | 2021-01-09 19:10 | REP ---
INDICATION: CONTUSION COMPARISON: None. TECHNIQUE: There are four views. FINDINGS: There is no fracture or dislocation. Mineralization and joint spaces are normal. There are no calcifications or foreign bodies. IMPRESSION: Essentially negative right elbow. . <Electronically signed by Jones Rocha > 01/09/21 [id number]
== END ==
LOC: M WUC 14:01
PROVIDERS: ATTEND Physician Assistant
DX: S30.0XXA Contusion of lower back and pelvis, initial encounter (principal); S50.01XA Contusion of right elbow, initial encounter; X58.XXXA Exposure to other specified factors, initial encounter; Y92.9 Unspecified place or not applicable; Y99.9 Unspecified external cause status

== ENCOUNTER 2023-05-01 10:35 | Emergency (ER) | payer MEDICARE ==
[~2023-05-01] VITALS: Ht 152.4 cm; Wt 92.3 kg
[~2023-05-01 10:35] MED LIST changes: +BUPR-71; -BUPR150T5; +ERGO500029 PO; +OMEP40CA4 PO; -OMEP40CA97 PO; -ROPI2TAB3 PO; +ROPI2TAB46 PO; -VITA50005 PO
[2023-05-01] MEDS ORDERED: PERCOCET 5MG/325MG TAB PO ONE (12:20)
[2023-05-01 12:40] LABS: BASO # 0.1 10^3/uL (0.0-0.2); BASO % 0.7 % (0.0-1.0); EOS # 0.2 10^3/uL (0.0-0.5); EOS % 3.2 % (0.0-3.0); HEMOGLOBIN 14.8 g/dl (12.0-15.5); LYMPH % 26.4 % (24.0-44.0); MEAN CORPUSCULAR HEMOGLOBIN 31.3 pg (27.0-33.0); MEAN CORPUSCULAR HGB CONC 32.9 g/dl (32.0-36.5); MEAN CORPUSCULAR VOLUME 95.1 fl (80.0-96.0); MONO # 0.6 10^3/uL (0.0-0.8); MONO % 8.4 % (2.0-8.0); NEUTROPHILS # 4.6 10^3/uL (1.5-8.5); NEUTROPHILS % 60.9 % (36.0-66.0); PLATELET COUNT, AUTOMATED 203 10^3/uL (150-450); RED BLOOD COUNT 4.73 10^6/uL (4.00-5.40); WHITE BLOOD COUNT 7.5 10^3/uL (4.0-10.0)
[2023-05-01 13:08] LABS: LIPASE 33 U/L (12-53)
[2023-05-01 13:11] LABS: ALKALINE PHOSPHATASE 105 U/L (46-116); ALT/SGPT 58 U/L (7.0-40); AST/SGOT 64 U/L (<34); BILIRUBIN,TOTAL 0.7 MG/DL (0.3-1.2); BLOOD UREA NITROGEN 11 MG/DL (9-23); CALCIUM LEVEL 8.9 MG/DL (8.3-10.6); CARBON DIOXIDE LEVEL 25 MMOL/L (20-31); CHLORIDE LEVEL 106 MMOL/L (98-107); CREATININE FOR GFR 0.56 MG/DL (0.55-1.30); GLOMERULAR FILTRATION RATE > 60.0 (>39); GLUCOSE, FASTING 99 MG/DL (74-106); POTASSIUM SERUM 4.3 MMOL/L (3.5-5.1); SODIUM LEVEL 142 MMOL/L (136-145)
[2023-05-01] MEDS ORDERED: PERC5TAB12 PO (14:07)
[2023-05-01] MEDS ORDERED: MIRA3350 PO (14:07)
[2023-05-01 14:18] VITALS: BP 146/86; TEMP 97.8; O2SAT 97
== END 2023-05-01 14:29 | disposition home or self-care (01) ==
LOC: M ED 10:35
DX: S22.41XA Multiple fractures of ribs, right side, initial encounter for closed fracture (principal); X50.9XXA Other and unspecified overexertion or strenuous movements or postures, initial encounter; Z88.5 Allergy status to narcotic agent; Z91.041 Radiographic dye allergy status

== ENCOUNTER → 2023-06-21 | Outpatient (REF) | payer MEDICARE ==
[~2023-06-21] MED LIST changes: +MIRA3350 PO
== END ==
LOC: M LAB REF 11:39
PROVIDERS: ATTEND Student in an Organized Health Care Education/Training Program
DX: J06.9 Acute upper respiratory infection, unspecified (principal)

== ENCOUNTER → 2023-07-15 | Outpatient (CLI) | payer MEDICARE | LOC: M SLEEP 20:00 | PROVIDERS: ATTEND Nurse Practitioner Family | DX: G47.33 Obstructive sleep apnea (adult) (pediatric) (principal); G47.61 Periodic limb movement disorder ==

== ENCOUNTER → 2023-08-06 | Outpatient (CLI) | payer MEDICARE | LOC: M WHC 07:35 | PROVIDERS: ATTEND Internal Medicine | DX: M81.0 Age-related osteoporosis without current pathological fracture (principal); M85.89 Other specified disorders of bone density and structure, multiple sites ==

== ENCOUNTER → 2023-09-03 | Outpatient (REF) | payer MEDICARE | LOC: M LAB REF 11:48 | PROVIDERS: ATTEND Internal Medicine | DX: N15.9 Renal tubulo-interstitial disease, unspecified (principal) ==

== ENCOUNTER 2023-09-06 15:17 | Outpatient (CLI) | payer MEDICARE ==
[~2023-09-06] VITALS: Ht 152.4 cm; Wt 91.4 kg
[2023-09-06 15:25] VITALS: BP 140/84; O2SAT 96
[2023-09-06] MEDS ORDERED: ZOLEDRONIC ACID 5 MG in IV 1 EA IV ONE (15:30)
[2023-09-06 16:15] VITALS: BP 132/88; O2SAT 97
== END 2023-09-06 16:15 | disposition home or self-care (01) ==
LOC: M INFU 15:17
PROVIDERS: ATTEND Internal Medicine
DX: M81.0 Age-related osteoporosis without current pathological fracture (principal); Z88.5 Allergy status to narcotic agent
CPT/HCPCS: 96365; J3489

== ENCOUNTER → 2023-11-03 | Outpatient (CLI) | payer MEDICARE | LOC: M WHC 08:21 | PROVIDERS: ATTEND Internal Medicine | DX: Z12.31 Encounter for screening mammogram for malignant neoplasm of breast (principal) ==

== ENCOUNTER → 2024-01-03 | Outpatient (CLI) | payer MEDICARE | LOC: M SLEEP 20:00 | PROVIDERS: ATTEND Nurse Practitioner Family | DX: R06.83 Snoring (principal); G47.8 Other sleep disorders ==

== ENCOUNTER → 2024-01-12 | Outpatient (CLI) | payer MEDICARE ==
[2024-01-12 10:16] LABS: BLOOD UREA NITROGEN 16 MG/DL (9-23); CALCIUM LEVEL 8.7 MG/DL (8.3-10.6); CARBON DIOXIDE LEVEL 30 MMOL/L (20-31); CHLORIDE LEVEL 109 MMOL/L (98-107); CREATININE FOR GFR 0.73 MG/DL (0.55-1.30); GLOMERULAR FILTRATION RATE > 60.0 (>39); GLUCOSE, FASTING 90 MG/DL (74-106); POTASSIUM SERUM 4.7 MMOL/L (3.5-5.1); SODIUM LEVEL 145 MMOL/L (136-145)
[2024-01-12 10:21] LABS: THYROID STIMULATING HORMONE 4.229 uIU/ML (0.55-4.78)
== END ==
LOC: M RAD 07:15
PROVIDERS: ATTEND Internal Medicine Cardiovascular Disease
DX: I82.401 Acute embolism and thrombosis of unspecified deep veins of right lower extremity (principal); I50.9 Heart failure, unspecified; I48.91 Unspecified atrial fibrillation; Z13.29 Encounter for screening for other suspected endocrine disorder

== ENCOUNTER → 2024-01-28 | Outpatient (CLI) | payer MEDICARE ==
[2024-01-28 10:58] LABS: BASO # 0.1 10^3/uL (0.0-0.2); BASO % 0.7 % (0.0-1.0); EOS # 0.3 10^3/uL (0.0-0.5); EOS % 3.7 % (0.0-3.0); HEMATOCRIT 42.6 % (36.0-47.0); HEMOGLOBIN 13.9 g/dl (12.0-15.5); LYMPH # 1.7 10^3/uL (1.5-5.0); MEAN CORPUSCULAR HEMOGLOBIN 31.9 pg (27.0-33.0); MEAN CORPUSCULAR HGB CONC 32.6 g/dl (32.0-36.5); MEAN CORPUSCULAR VOLUME 97.7 fl (80.0-96.0); MONO # 0.5 10^3/uL (0.0-0.8); MONO % 7.3 % (2.0-8.0); NEUTROPHILS # 4.6 10^3/uL (1.5-8.5); NEUTROPHILS % 64.2 % (36.0-66.0); PLATELET COUNT, AUTOMATED 183 10^3/uL (150-450); RED BLOOD COUNT 4.36 10^6/uL (4.00-5.40); WHITE BLOOD COUNT 7.1 10^3/uL (4.0-10.0)
== END ==
LOC: M WUC 08:35
PROVIDERS: ATTEND Internal Medicine Cardiovascular Disease
DX: I47.19 Other supraventricular tachycardia (principal); Z79.899 Other long term (current) drug therapy

== ENCOUNTER → 2024-03-30 | Outpatient (CLI) | payer MEDICARE ==
[2024-03-30 19:18] LABS: BASO # 0.1 10^3/uL (0.0-0.2); BASO % 0.6 % (0.0-1.0); EOS # 0.2 10^3/uL (0.0-0.5); EOS % 2.8 % (0.0-3.0); HEMATOCRIT 45.4 % (36.0-47.0); HEMOGLOBIN 14.7 g/dl (12.0-15.5); LYMPH # 1.9 10^3/uL (1.5-5.0); LYMPH % 22.8 % (24.0-44.0); MEAN CORPUSCULAR HEMOGLOBIN 31.5 pg (27.0-33.0); MEAN CORPUSCULAR HGB CONC 32.4 g/dl (32.0-36.5); MEAN CORPUSCULAR VOLUME 97.2 fl (80.0-96.0); MONO # 0.7 10^3/uL (0.0-0.8); MONO % 8.8 % (2.0-8.0); NEUTROPHILS # 5.4 10^3/uL (1.5-8.5); NEUTROPHILS % 64.8 % (36.0-66.0); PLATELET COUNT, AUTOMATED 200 10^3/uL (150-450); RED BLOOD COUNT 4.67 10^6/uL (4.00-5.40); WHITE BLOOD COUNT 8.3 10^3/uL (4.0-10.0)
[2024-03-30 19:45] LABS: BLOOD UREA NITROGEN 9 MG/DL (9-23); CALCIUM LEVEL 8.6 MG/DL (8.3-10.6); CARBON DIOXIDE LEVEL 29 MMOL/L (20-31); CHLORIDE LEVEL 107 MMOL/L (98-107); CREATININE FOR GFR 0.61 MG/DL (0.55-1.30); GLOMERULAR FILTRATION RATE > 60.0 (>39); GLUCOSE, FASTING 90 MG/DL (74-106); POTASSIUM SERUM 4.3 MMOL/L (3.5-5.1); SODIUM LEVEL 142 MMOL/L (136-145)
== END ==
LOC: M WUC 11:48
PROVIDERS: ATTEND Internal Medicine Cardiovascular Disease
DX: I47.19 Other supraventricular tachycardia (principal); R07.9 Chest pain, unspecified; R06.09 Other forms of dyspnea

== ENCOUNTER → 2024-05-04 | Outpatient (REF) | payer MEDICARE ==
[2024-05-04 14:03] LABS: PHOSPHORUS LEVEL 2.5 MG/DL (2.4-5.1)
[2024-05-04 14:04] LABS: FERRITIN 298.3 NG/ML (7.3-270.7); PERCENT SATURATION 14.5 % (13.2-45.0); TOTAL 25(OH) VITAMIN D 32.5 NG/ML (20.0-100.0)
[2024-05-04 14:05] LABS: FOLATE 8.5 NG/ML (>5.4)
== END ==
LOC: M LAB REF 12:29
PROVIDERS: ATTEND Internal Medicine
DX: N39.0 Urinary tract infection, site not specified (principal); Z98.84 Bariatric surgery status; Z79.899 Other long term (current) drug therapy

== ENCOUNTER → 2024-05-10 | Outpatient (CLI) | payer MEDICARE | LOC: M PLAIMG 07:15 | PROVIDERS: ATTEND Internal Medicine | DX: R51.9 Headache, unspecified (principal); H53.2 Diplopia; R05.8 Other specified cough ==

== ENCOUNTER → 2024-07-19 | Outpatient (REF) | payer MEDICARE | LOC: M LAB REF 11:58 | PROVIDERS: ATTEND Internal Medicine | DX: Z98.84 Bariatric surgery status (principal) ==

== ENCOUNTER → 2024-09-14 | Outpatient (REF) | payer MEDICARE | LOC: M LAB REF 14:06 | PROVIDERS: ATTEND Internal Medicine | DX: K76.0 Fatty (change of) liver, not elsewhere classified (principal); R74.01 Elevation of levels of liver transaminase levels ==

== ENCOUNTER 2024-10-03 15:07 | Outpatient (CLI) | payer MEDICARE ==
[2024-10-03 15:26] VITALS: BP 126/78; O2SAT 98
[2024-10-03] MEDS: ZOLEDRONIC ACID 5 MG in IV 1 EA IV ONE (15:26)
== END 2024-10-03 16:03 ==
LOC: M INFU 15:07
PROVIDERS: ATTEND Internal Medicine
DX: M81.0 Age-related osteoporosis without current pathological fracture (principal); Z88.5 Allergy status to narcotic agent; Z91.041 Radiographic dye allergy status
CPT/HCPCS: 96365; J3489

== ENCOUNTER 2024-10-22 06:23 | Emergency (ER) | payer MEDICARE ==
[~2024-10-22] VITALS: Ht 152.4 cm; Wt 90.9 kg
[2024-10-22 07:14] LABS: BASO % 0.6 % (0.0-1.0); EOS # 0.3 10^3/uL (0.0-0.5); EOS % 3.8 % (0.0-3.0); HEMATOCRIT 42.8 % (36.0-47.0); LYMPH # 1.8 10^3/uL (1.5-5.0); LYMPH % 26.4 % (24.0-44.0); MEAN CORPUSCULAR HEMOGLOBIN 31.6 pg (27.0-33.0); MEAN CORPUSCULAR HGB CONC 32.7 g/dl (32.0-36.5); MEAN CORPUSCULAR VOLUME 96.6 fl (80.0-96.0); MONO # 0.5 10^3/uL (0.0-0.8); MONO % 7.3 % (2.0-8.0); NEUTROPHILS # 4.2 10^3/uL (1.5-8.5); NEUTROPHILS % 61.8 % (36.0-66.0); PLATELET COUNT, AUTOMATED 163 10^3/uL (150-450); RED BLOOD COUNT 4.43 10^6/uL (4.00-5.40); WHITE BLOOD COUNT 6.8 10^3/uL (4.0-10.0)
[2024-10-22] MEDS: ACETAMINOPHEN 325 MG TAB PO ONE (07:41)
[2024-10-22] MEDS: BOOSTRIX VACCINE (TETANUS/DIPHTH/ACEL. PERTUSSIS) 0.5ML SYR IM.IMMUN ONE (07:42)
[2024-10-22 09:05] VITALS: BP 111/55; TEMP 97; O2SAT 96
== END 2024-10-22 09:15 | disposition home or self-care (01) ==
LOC: M ED 06:23 → EDBD 06:23 → M ED 09:15
DX: S01.01XA Laceration without foreign body of scalp, initial encounter (principal); Y92.019 Unspecified place in single-family (private) house as the place of occurrence of the external cause; Y93.9 Activity, unspecified; Y99.9 Unspecified external cause status; E78.5 Hyperlipidemia, unspecified; F41.9 Anxiety disorder, unspecified; F32.A Depression, unspecified; Z23 Encounter for immunization; Z88.5 Allergy status to narcotic agent; Z91.041 Radiographic dye allergy status; Z79.810 Long term (current) use of selective estrogen receptor modulators (SERMs); Z79.899 Other long term (current) drug therapy

== ENCOUNTER → 2024-11-06 | Outpatient (CLI) | payer MEDICARE | LOC: M WUC 12:15 | PROVIDERS: ATTEND Internal Medicine | DX: R68.84 Jaw pain (principal) ==

== ENCOUNTER → 2024-11-22 | Outpatient (CLI) | payer MEDICARE | LOC: M RAD 07:05 | PROVIDERS: ATTEND Internal Medicine | DX: K74.00 Hepatic fibrosis, unspecified (principal) ==

== ENCOUNTER → 2025-01-03 | Outpatient (CLI) | payer MEDICARE ==
[~2025-01-03] MED LIST changes: +DENO60SY2 SC; -PROL60SO SC
[2025-01-03 15:23] LABS: CHOLESTEROL RISK RATIO 2.98 (<5); HDL CHOLESTEROL 72.4 MG/DL (>40); LDL CHOLESTEROL 127.6 MG/DL (<100); NON-HDL-C 143.6 MG/DL
[2025-01-03 15:36] LABS: HEMOGLOBIN A1c 5.3 % (4.0-6.0)
== END ==
LOC: M WUC 08:06
PROVIDERS: ATTEND Internal Medicine Cardiovascular Disease
DX: E78.2 Mixed hyperlipidemia (principal); E66.9 Obesity, unspecified; Z79.899 Other long term (current) drug therapy

== ENCOUNTER → 2025-01-04 | Outpatient (CLI) | payer MEDICARE ==
[2025-01-04 13:33] LABS: IRON (FE) 109 UG/DL (50-170); PERCENT SATURATION 27.2 % (13.2-45.0); TOTAL IRON BINDING CAPACITY 401 UG/DL (250-425)
[2025-01-04 13:34] LABS: ALBUMIN 3.6 G/DL (3.2-5.2); ALKALINE PHOSPHATASE 104 U/L (35-104); ALT/SGPT 60 U/L (7.0-40); AST/SGOT 73 U/L (<34); BILIRUBIN,DIRECT 0.2 MG/DL (<0.4); BILIRUBIN,TOTAL 0.7 MG/DL (0.3-1.2)
[2025-01-04 13:36] LABS: FERRITIN 123.1 NG/ML (7.3-270.7); THYROID STIMULATING HORMONE 2.054 uIU/ML (0.55-4.78)
[2025-01-04 13:43] LABS: HEPATITIS B SURFACE ANTIBODY NEGATIVE (POSITIVE)
[2025-01-04 13:54] LABS: HEPATITIS B SURFACE ANTIGEN NEGATIVE (NEGATIVE)
[2025-01-04 14:15] LABS: HEPATITIS C VIRUS ABY INDEX 0.05 INDEX (<0.8)
[2025-01-05 09:58] LABS: T P ELECTROPHORESIS SO 6.9 g/dL (6.1-8.1)
[2025-01-05 13:58] LABS: ALPHA 1 ANTITRYPSIN 111 mg/dL (83-199)
[2025-01-06 01:08] LABS: TISSUE TRANSGLUTAMINASE IgA < 1.0 U/mL (<15.0)
[2025-01-06 13:47] LABS: HEPATITIS A IgG TOTAL REACTIVE (NON-REACTIVE)
[2025-01-08 07:27] LABS: ALPHA-1-GLOBULINS SO 0.2 g/dL (0.2-0.3); ALPHA-2-GLOBULINS SO 0.8 g/dL (0.5-0.9); BETA 2 GLOBULIN 0.5 g/dL (0.2-0.5); BETA-GLOBULIN SO 0.5 g/dL (0.4-0.6); GAMMA GLOBULINS SO 0.9 g/dL (0.8-1.7)
[2025-01-08 16:21] LABS: ANTI-MITOCHONDRIAL ANTIBODY NEGATIVE (NEGATIVE)
[2025-01-08 17:18] LABS: ANA PATTERN Nuclear, Speckled (NEGATIVE); ANA PATTERN 2 Nuclear, Homogeneous; ANA PATTERN 3 Mitotic, Centrosome; ANA SCREEN, IFA POSITIVE (NEGATIVE); ANA TITER 1:40 titer (<1:40); ANA TITER 2 1:40 titer (NEGATIVE)
[2025-01-09 06:48] LABS: ANTI-SMOOTH MUSCLE ANTIBODY < 20 U (<20)
[2025-01-09 23:33] LABS: LIVER-KIDNEY MICROSOMAL ABY <= 20.0 U (<=20.0)
== END ==
LOC: M WUC 10:02
PROVIDERS: ATTEND Internal Medicine Gastroenterology
DX: K22.70 Barrett's esophagus without dysplasia (principal); R10.13 Epigastric pain; K56.699 Other intestinal obstruction unspecified as to partial versus complete obstruction; K59.00 Constipation, unspecified; K76.0 Fatty (change of) liver, not elsewhere classified; Z11.59 Encounter for screening for other viral diseases; R93.89 Abnormal findings on diagnostic imaging of other specified body structures

== ENCOUNTER 2025-09-19 21:47 | Inpatient (IN) | payer MEDICARE ==
[~2025-09-19] VITALS: Ht 152.4 cm; Wt 214.1 kg
[2025-09-19 22:29] LABS: BASO # 0.1 10^3/uL (0.0-0.2); BASO % 0.5 % (0.0-1.0); EOS # 0.4 10^3/uL (0.0-0.5); EOS % 3.1 % (0.0-3.0); LYMPH # 2.3 10^3/uL (1.5-5.0); LYMPH % 19.8 % (24.0-44.0); MONO # 0.8 10^3/uL (0.0-0.8); MONO % 7.1 % (2.0-8.0); NEUTROPHILS # 8.0 10^3/uL (1.5-8.5); NEUTROPHILS % 69.2 % (36.0-66.0); PLATELET COUNT, AUTOMATED 173 10^3/uL (150-450)
[2025-09-19 22:56] LABS: ALT/SGPT 47 U/L (7.0-40); AST/SGOT 71 U/L (<34); CALCIUM LEVEL 8.2 MG/DL (8.3-10.6); CARBON DIOXIDE LEVEL 27 MMOL/L (20-31); CHLORIDE LEVEL 107 MMOL/L (98-107); CREATININE FOR GFR 0.58 MG/DL (0.55-1.30); GLOMERULAR FILTRATION RATE > 90.0 (>39); POTASSIUM SERUM 4.7 MMOL/L (3.5-5.1); SODIUM LEVEL 143 MMOL/L (136-145)
[2025-09-20] VITALS (13 sets, daily range): BP systolic 99–195; BP diastolic 50–84; TEMP 96.5–97.5; O2SAT 95–99
[2025-09-20] MEDS: READI-CAT 2 PO SCH (01:00)
[2025-09-20] MEDS: KETOROLAC 30 MG/ML 1 ML VIAL IV ONE (01:45)
[2025-09-20] MEDS: ACETAMINOPHEN *IV* 1,000 MG in IV 1 EA IV ONE (01:46)
[2025-09-20] MEDS: ONDANSETRON 4MG/2ML VIAL IV ONE (05:52)
[2025-09-20] MEDS ORDERED: LR 1,000 ML IV SCH (06:45)
[2025-09-20] MEDS: MIDAZOLAM INJ 2 MG/2 ML VIAL IV STA (06:46)
[2025-09-20] MEDS: LR 1,000 ML IV SCH (08:22)
[2025-09-20] MEDS ORDERED: ZOLO100T PO (08:58)
[2025-09-20] MEDS ORDERED: ESZO1TAB5 PO (08:58)
[2025-09-20] MEDS ORDERED: LACT20EL PO (08:58)
[2025-09-20] MEDS ORDERED: NADO20TA38 PO (08:58)
[2025-09-20] MEDS ORDERED: BUPR150T15 PO (08:58)
[2025-09-20] MEDS ORDERED: ROPI5TAB19 PO (08:58)
[2025-09-20] MEDS ORDERED: HOME MED LIST COMPLETE! XX SCH (09:00)
[2025-09-20] MEDS: hydrALAZINE 20 MG/ML 1 ML VIAL IV ONE (09:30)
[2025-09-20] MEDS: ONDANSETRON 4MG/2ML VIAL IV PRN (11:14)
[2025-09-20] MEDS ORDERED: MIDAZOLAM INJ 2 MG/2 ML VIAL As Ordered ONE (13:14)
[2025-09-20] MEDS ORDERED: ROCURONIUM BROMIDE 50MG/5ML VIAL As Ordered ONE (13:15)
[2025-09-20] MEDS ORDERED: LIDOCAINE 2% 100 MG/5 ML SDV (FOR ANES.) As Ordered ONE (13:15)
[2025-09-20] MEDS ORDERED: SUGAMMADEX SODIUM 500 MG/5 ML VIAL As Ordered ONE (13:15)
[2025-09-20] MEDS ORDERED: ONDANSETRON 4MG/2ML VIAL As Ordered ONE (13:16)
[2025-09-20] MEDS ORDERED: dexAMETHasone 4 MG/ML 1 ML VIAL As Ordered ONE (13:16)
[2025-09-20] MEDS ORDERED: dexmedeTOMIDine (4 MCG/ML) 200 MCG/50 ML BTL As Ordered ONE (13:18)
[2025-09-20] MEDS ORDERED: ACETAMINOPHEN 1000MG/100ML IV BAG As Ordered ONE (13:19)
[2025-09-20] MEDS ORDERED: PHENYLephrine 500MCG 5ML (100MCG/ML) SYRINGE As Ordered ONE (14:15)
[2025-09-20] MEDS ORDERED: CALCIUM CHLORIDE 10% 1 GM/10 ML SYR As Ordered ONE (14:49)
[2025-09-20] MEDS: ACETAMINOPHEN *IV* 1,000 MG in IV 1 EA IV PRN (16:15)
[2025-09-21] VITALS (22 sets, daily range): BP systolic 103–149; BP diastolic 54–67; TEMP 97.1–98.5; O2SAT 91–98
[2025-09-21 06:50] LABS: BASO # 0.0 10^3/uL (0.0-0.2); BASO % 0.2 % (0.0-1.0); EOS # 0.0 10^3/uL (0.0-0.5); EOS % 0.1 % (0.0-3.0); LYMPH # 2.5 10^3/uL (1.5-5.0); LYMPH % 15.6 % (24.0-44.0); MONO # 1.6 10^3/uL (0.0-0.8); MONO % 9.6 % (2.0-8.0); NEUTROPHILS # 12.1 10^3/uL (1.5-8.5); NEUTROPHILS % 74.1 % (36.0-66.0); PLATELET COUNT, AUTOMATED 216 10^3/uL (150-450)
[2025-09-21 07:14] LABS: ALT/SGPT 30 U/L (7.0-40); AST/SGOT 40 U/L (<34); CALCIUM LEVEL 8.5 MG/DL (8.3-10.6); CARBON DIOXIDE LEVEL 28 MMOL/L (20-31); CHLORIDE LEVEL 104 MMOL/L (98-107); CREATININE FOR GFR 0.61 MG/DL (0.55-1.30); GLOMERULAR FILTRATION RATE > 90.0 (>39); MAGNESIUM LEVEL 1.7 MG/DL (1.8-2.4); POTASSIUM SERUM 4.3 MMOL/L (3.5-5.1); SODIUM LEVEL 144 MMOL/L (136-145)
[2025-09-21] MEDS: MAG SULF 1GM/100ML (MAG RUN) 1 GM in IV 1 EA IV SCH (08:48)
[2025-09-21] MEDS: HEPARIN SOD 5000 UNITS/ML 1 ML VIAL/SYRINGE SQ SCH (10:37)
[2025-09-22] VITALS (28 sets, daily range): BP systolic 110–156; BP diastolic 54–80; TEMP 97–98.6; O2SAT 73–100
[2025-09-22 06:04] LABS: BASO # 0.1 10^3/uL (0.0-0.2); BASO % 0.5 % (0.0-1.0); EOS # 0.4 10^3/uL (0.0-0.5); EOS % 2.4 % (0.0-3.0); LYMPH # 3.1 10^3/uL (1.5-5.0); LYMPH % 21.2 % (24.0-44.0); MONO # 1.6 10^3/uL (0.0-0.8); MONO % 10.6 % (2.0-8.0); NEUTROPHILS # 9.6 10^3/uL (1.5-8.5); NEUTROPHILS % 65.0 % (36.0-66.0); PLATELET COUNT, AUTOMATED 173 10^3/uL (150-450)
[2025-09-22 06:30] LABS: ALT/SGPT 24 U/L (7.0-40); AST/SGOT 33 U/L (<34); CALCIUM LEVEL 7.6 MG/DL (8.3-10.6); CARBON DIOXIDE LEVEL 28 MMOL/L (20-31); CHLORIDE LEVEL 104 MMOL/L (98-107); CREATININE FOR GFR 0.52 MG/DL (0.55-1.30); GLOMERULAR FILTRATION RATE > 90.0 (>39); MAGNESIUM LEVEL 1.9 MG/DL (1.8-2.4); POTASSIUM SERUM 3.9 MMOL/L (3.5-5.1); SODIUM LEVEL 142 MMOL/L (136-145)
[2025-09-22] MEDS: SERTRALINE 100 MG TAB PO SCH (20:11)
[2025-09-22] MEDS: CALCIUM CARBONATE 500 MG CHEW U/D PO PRN (21:29)
[2025-09-22] MEDS: FAMOTIDINE 20 MG TAB PO SCH (23:05)
[2025-09-23] VITALS (18 sets, daily range): BP systolic 114–139; BP diastolic 58–65; TEMP 97.6–98.7; O2SAT 86–99
[2025-09-23 06:10] LABS: PLATELET COUNT, AUTOMATED 163 10^3/uL (150-450)
[2025-09-23 06:38] LABS: ALT/SGPT 20 U/L (7.0-40); AST/SGOT 30 U/L (<34); CALCIUM LEVEL 7.9 MG/DL (8.3-10.6); CARBON DIOXIDE LEVEL 29 MMOL/L (20-31); CHLORIDE LEVEL 102 MMOL/L (98-107); CREATININE FOR GFR 0.45 MG/DL (0.55-1.30); GLOMERULAR FILTRATION RATE > 90.0 (>39); POTASSIUM SERUM 3.6 MMOL/L (3.5-5.1); SODIUM LEVEL 141 MMOL/L (136-145)
[2025-09-23] MEDS: SUCRALFATE SUSP 1GM/10ML UD PO ONE (09:44)
[2025-09-24 04:05] VITALS: BP 129/60; TEMP 98.9; O2SAT 100
[2025-09-24 04:37] LABS: PLATELET COUNT, AUTOMATED 159 10^3/uL (150-450)
[2025-09-24 07:55] VITALS: BP 143/65; TEMP 97.1; O2SAT 98
== END 2025-09-24 11:14 | disposition home or self-care (01) | DRG 337 ==
LOC: EDBD 21:47 → M ED 21:47 → M ED INP 21:48 → OBSVTOIN 09-20 15:05 → M PCU 09-20 16:33
PROVIDERS: ADMIT Student in an Organized Health Care Education/Training Program; ATTEND Family Medicine
PROC: 0WQF4ZZ Repair Abdominal Wall, Percutaneous Endoscopic Approach (ICD-10-PCS; 2025-09-20)
PROC: 8E0W4CZ Robotic Assisted Procedure of Trunk Region, Percutaneous Endoscopic Approach (ICD-10-PCS; 2025-09-20)
PROC: 0DNU4ZZ Release Omentum, Percutaneous Endoscopic Approach (ICD-10-PCS; principal; 2025-09-20 07:30)
DX: K43.0 Incisional hernia with obstruction, without gangrene (principal); F41.9 Anxiety disorder, unspecified; F32.A Depression, unspecified; G25.81 Restless legs syndrome; M19.90 Unspecified osteoarthritis, unspecified site; M81.0 Age-related osteoporosis without current pathological fracture; E83.42 Hypomagnesemia; R13.10 Dysphagia, unspecified; R09.02 Hypoxemia; Z98.84 Bariatric surgery status; Z91.048 Other nonmedicinal substance allergy status; Z90.49 Acquired absence of other specified parts of digestive tract; Z88.5 Allergy status to narcotic agent; Z79.899 Other long term (current) drug therapy; Z88.8 Allergy status to other drugs, medicaments and biological substances

== ENCOUNTER 2025-09-30 20:12 | Inpatient (IN) | payer MEDICARE ==
[~2025-09-30] VITALS: Ht 152.4 cm; Wt 94.4 kg
[~2025-09-30 20:12] MED LIST changes: +BUPR150T15 PO; +ESZO1TAB5 PO; +LACT20EL PO; +NADO20TA38 PO; +ROPI5TAB19 PO; +ZOLO100T PO
[2025-09-30] MEDS: NS 500 ML IV ONE (21:16)
[2025-09-30] MEDS: ONDANSETRON 4MG/2ML VIAL IV ONE (21:17)
[2025-09-30 21:20] LABS: BASO # 0.1 10^3/uL (0.0-0.2); BASO % 0.4 % (0.0-1.0); EOS # 0.6 10^3/uL (0.0-0.5); EOS % 4.4 % (0.0-3.0); LYMPH # 1.9 10^3/uL (1.5-5.0); LYMPH % 14.0 % (24.0-44.0); MONO # 1.0 10^3/uL (0.0-0.8); MONO % 7.4 % (2.0-8.0); NEUTROPHILS # 9.9 10^3/uL (1.5-8.5); NEUTROPHILS % 73.1 % (36.0-66.0); PLATELET COUNT, AUTOMATED 270 10^3/uL (150-450)
[2025-09-30 21:26] LABS: ALT/SGPT 20 U/L (7.0-40); AST/SGOT 55 U/L (<34); CALCIUM LEVEL 8.4 MG/DL (8.3-10.6); CARBON DIOXIDE LEVEL 28 MMOL/L (20-31); CHLORIDE LEVEL 109 MMOL/L (98-107); CREATININE FOR GFR 0.55 MG/DL (0.55-1.30); GLOMERULAR FILTRATION RATE > 90.0 (>39); POTASSIUM SERUM 4.2 MMOL/L (3.5-5.1); SODIUM LEVEL 145 MMOL/L (136-145)
[2025-09-30] MEDS ORDERED: HYDROMORPHONE HCL 0.5 MG/0.5 ML SYRINGE IV PRN (22:20)
[2025-09-30 23:25] LABS: INR 1.1
[2025-09-30] MEDS: HYDROMORPHONE HCL 0.5 MG/0.5 ML SYRINGE IV PRN (23:29)
[2025-09-30] MEDS ORDERED: ONDANSETRON 4MG/2ML VIAL IV PRN (23:50)
[2025-10-01] VITALS (19 sets, daily range): BP systolic 107–132; BP diastolic 52–67; TEMP 97.1–98.5; O2SAT 87–99
[2025-10-01] MEDS: LR 1,000 ML IV SCH (00:56)
[2025-10-01] MEDS: metroNIDAZOLE 500 MG in IV 1 EA IV SCH (00:56)
[2025-10-01] MEDS ORDERED: ONDANSETRON 4MG/2ML VIAL IV PRN (03:00)
[2025-10-01] MEDS: ACETAMINOPHEN *IV* 1,000 MG in IV 1 EA IV ONE (03:56)
[2025-10-01] MEDS: HYDROMORPHONE HCL 0.5 MG/0.5 ML SYRINGE IV PRN ×2 (06:14→09:56)
[2025-10-01] MEDS ORDERED: HOME MED LIST COMPLETE! XX SCH (09:00)
[2025-10-01] MEDS: PANTOPRAZOLE 40MG VIAL IV SCH (09:17)
[2025-10-01 09:37] LABS: BASO # 0.0 10^3/uL (0.0-0.2); BASO % 0.2 % (0.0-1.0); EOS # 0.3 10^3/uL (0.0-0.5); EOS % 2.2 % (0.0-3.0); LYMPH # 1.7 10^3/uL (1.5-5.0); LYMPH % 13.8 % (24.0-44.0); MONO # 1.2 10^3/uL (0.0-0.8); MONO % 9.5 % (2.0-8.0); NEUTROPHILS # 9.2 10^3/uL (1.5-8.5); NEUTROPHILS % 73.6 % (36.0-66.0); PLATELET COUNT, AUTOMATED 237 10^3/uL (150-450)
[2025-10-01 09:59] LABS: CALCIUM LEVEL 7.7 MG/DL (8.3-10.6); CARBON DIOXIDE LEVEL 28 MMOL/L (20-31); CHLORIDE LEVEL 108 MMOL/L (98-107); CREATININE FOR GFR 0.47 MG/DL (0.55-1.30); GLOMERULAR FILTRATION RATE > 90.0 (>39); POTASSIUM SERUM 4.1 MMOL/L (3.5-5.1); SODIUM LEVEL 144 MMOL/L (136-145)
[2025-10-01] MEDS: buPROPion **SR** 150 MG TABLET PO SCH (14:07)
[2025-10-01 15:47] LABS: C REACTIVE PROTEIN QUANTITATIV 3.10 MG/DL (<1.0)
[2025-10-01] MEDS: cefTRIAXone SOD 1 GM in DEXTROSE 5% (D5W) ADV/MINI-BAG 50 ML IV SCH (16:23)
[2025-10-01] MEDS: ACETAMINOPHEN 325 MG TAB PO PRN (18:11)
[2025-10-01 19:14] LABS: BASO # 0.1 10^3/uL (0.0-0.2); BASO % 0.4 % (0.0-1.0); EOS # 0.5 10^3/uL (0.0-0.5); EOS % 3.8 % (0.0-3.0); LYMPH # 1.6 10^3/uL (1.5-5.0); LYMPH % 12.2 % (24.0-44.0); MONO # 1.3 10^3/uL (0.0-0.8); MONO % 9.8 % (2.0-8.0); NEUTROPHILS # 9.5 10^3/uL (1.5-8.5); NEUTROPHILS % 73.3 % (36.0-66.0); PLATELET COUNT, AUTOMATED 222 10^3/uL (150-450)
[2025-10-01] MEDS: NADOLOL 20MG TABLET PO SCH (19:59)
[2025-10-01] MEDS: SERTRALINE 100 MG TAB PO SCH (20:32)
[2025-10-01] MEDS: rOPINIRole 0.25 MG TAB PO SCH (20:32)
[2025-10-02 03:31] VITALS: BP 110/67; TEMP 97.9; O2SAT 98
[2025-10-02 07:15] VITALS: BP 117/57; TEMP 97.8; O2SAT 94
[2025-10-02 07:37] LABS: BASO # 0.1 10^3/uL (0.0-0.2); BASO % 0.4 % (0.0-1.0); EOS # 0.6 10^3/uL (0.0-0.5); EOS % 4.7 % (0.0-3.0); LYMPH # 1.7 10^3/uL (1.5-5.0); LYMPH % 13.3 % (24.0-44.0); MONO # 0.7 10^3/uL (0.0-0.8); MONO % 5.8 % (2.0-8.0); NEUTROPHILS # 9.6 10^3/uL (1.5-8.5); NEUTROPHILS % 75.3 % (36.0-66.0); PLATELET COUNT, AUTOMATED 239 10^3/uL (150-450)
[2025-10-02] MEDS ORDERED: PERCOCET 5MG/325MG TAB PO PRN ×2 (07:40)
[2025-10-02 08:28] LABS: CARBON DIOXIDE LEVEL 28 MMOL/L (20-31); CHLORIDE LEVEL 105 MMOL/L (98-107); CREATININE FOR GFR 0.51 MG/DL (0.55-1.30); GLOMERULAR FILTRATION RATE > 90.0 (>39); POTASSIUM SERUM 4.0 MMOL/L (3.5-5.1); SODIUM LEVEL 140 MMOL/L (136-145)
[2025-10-02] MEDS: IPRATROPIUM 0.5 MG/ALBUTEROL 2.5 MG INH SOL UD 3 ML NEB PRN (09:05)
[2025-10-02 09:07] LABS: CALCIUM LEVEL 8.3 MG/DL (8.3-10.6)
[2025-10-02] MEDS: predniSONE 20 MG TAB PO SCH (09:12)
[2025-10-02] MEDS ORDERED: OXYC1TAB23 PO (11:48)
[2025-10-02] MEDS ORDERED: ALBU8.5H INH (11:48)
[2025-10-02] MEDS ORDERED: AMOX875T2 PO (11:48)
[2025-10-02] MEDS ORDERED: PRED50TA57 PO (11:48)
[2025-10-02 12:05] VITALS: BP 117/59; TEMP 98.6; O2SAT 93
== END 2025-10-02 14:30 | disposition home or self-care (01) | DRG 920 ==
LOC: M ED 20:12 → M ED INP 23:48 → M PCU 10-01 01:15
PROVIDERS: ADMIT Student in an Organized Health Care Education/Training Program; ATTEND Internal Medicine
DX: L76.32 Postprocedural hematoma of skin and subcutaneous tissue following other procedure (principal); D62 Acute posthemorrhagic anemia; F41.9 Anxiety disorder, unspecified; F32.A Depression, unspecified; M81.0 Age-related osteoporosis without current pathological fracture; G25.81 Restless legs syndrome; F39 Unspecified mood [affective] disorder; M19.90 Unspecified osteoarthritis, unspecified site; Z98.84 Bariatric surgery status; Z90.49 Acquired absence of other specified parts of digestive tract; Z88.5 Allergy status to narcotic agent; Z88.8 Allergy status to other drugs, medicaments and biological substances; Z91.041 Radiographic dye allergy status; Z91.048 Other nonmedicinal substance allergy status; Z79.899 Other long term (current) drug therapy; J20.8 Acute bronchitis due to other specified organisms